=== PATIENT | female | born 1970 | race American Indian/Alaskan Native ===

== ENCOUNTER 2019-01-05 08:35 | Emergency (ER) | payer MEDICAID ==
[2019-01-05 08:47] VITALS: BP 173/98
[2019-01-05] MEDS ORDERED: oxyCODONE /ACETAMINOPHEN 5-325MG TAB PO ONE (09:04)
[2019-01-05] MEDS ORDERED: KETOROLAC 60 MG/2 ML INJ IM ONE (09:04)
[2019-01-05] MEDS ORDERED: ONDANSETRON 4 MG ODT TAB PO ONE (09:05)
[2019-01-05 09:24] LABS: Alanine Aminotransferase 10 units/L (7-56); BUN/Creatinine Ratio 10; Blood Urea Nitrogen 8 mg/dL (7-17); Calcium 8.9 mg/dL (8.4-10.2); Hemolysis Index 7
--- NOTE | 2019-01-05 09:27 | Emergency Department Report ---
ED Female HPI - General Chief complaint: Abdominal Pain Stated complaint: ABD PAIN Time Seen by Provider: 01/05/19 09:05 Source: patient Mode of arrival: Ambulatory Limitations: No Limitations - History of Present Illness Initial comments: 48 year old female with a past medical history hypertension, lupus, sickle cell, and uterine fibroids presents to the hospital with complaints of pelvic pain and vaginal bleeding 3 days. Patient states she typically has irregular menses secondary to fibroids. She is complaining of constant 10/10 suprapubic stabbing abdominal pain worse with palpation. She has never pain this severe before she states. She missed her scheduled appointment on the to have her fibroids removed. [place]. No reports of fever or dysuria. - Related Data Previous Rx's Medication Instructions Recorded Last Taken Type HYDROcodone/APAP 7.5-325 [[place] 1 each PO Q6HR PRN #15 tablet 01/05/19 Unknown Rx 7.5/325] Ibuprofen [Motrin] 800 mg PO Q8HR PRN #30 tablet 01/05/19 Unknown Rx Allergies Allergy/AdvReac Type Severity Reaction Status Date / Time shellfish derived Allergy Severe Anaphylaxis Verified 01/05/19 08:47 Sulfa (Sulfonamide Allergy Anaphylaxis Verified 01/05/19 08:47 Antibiotics) ED Review of Systems ROS: Stated complaint: ABD PAIN Other details as noted in HPI Comment: All other systems reviewed and negative ED Past Medical Hx - Past Medical History Hx Hypertension: Yes Hx Sickle Cell Disease: Yes Additional medical history: LUPUS - Surgical History Additional Surgical History: csec x1. - Social History Smoking Status: Current Every Day Smoker Substance Use Type: Alcohol, Marijuana - Medications Home Medications: Home Medications Medication Instructions Recorded Confirmed Last Taken Type HYDROcodone/APAP 7.5-325 [[place] 1 each PO Q6HR PRN #15 tablet 01/05/19 Unknown Rx 7.5/325] Ibuprofen [Motrin] 800 mg PO Q8HR PRN #30 tablet 01/05/19 Unknown Rx ED Physical Exam - General Limitations: No Limitations - Other Other exam information: Gen.: No acute distress Head: Atraumatic Eyes: Normal appearance ENT: Moist mucous membranes Neck: Normal appearance, no posterior midline tenderness, no meningismus Chest: Clear to auscultation bilaterally Cardiovascular: Regular rate and rhythm Abdomen: Normal appearance, soft, mild suprapubic tenderness, no rebound or guarding, normal bowel sounds Back: Normal appearance, nontender Extremity: Full range of motion, normal appearance Neuro: Alert oriented 3, clear speech, no focal motor or sensory deficit Psychiatric: Appropriate Skin: No rash ED Course Vital Signs 01/05/19 08:46 Temperature 98.4 F Pulse Rate 75 Respiratory 18 Rate Blood Pressure 173/98 [Right] O2 Sat by Pulse 100 Oximetry ED Medical Decision Making - Lab Data Result diagrams: 01/05/19 08:52 01/05/19 08:52 Lab Results 01/05/19 01/05/19 01/05/19 Range/Units 08:52 08:52 08:52 WBC 5.7 (4.5-11.0) K/mm3 RBC 4.94 (3.65-5.03) M/mm3 Hgb 11.5 (10.1-14.3) gm/dl Hct 36.3 (30.3-42.9) % MCV 74 L (79-97) fl MCH 23 L (28-32) pg MCHC 32 (30-34) % RDW 16.8 H (13.2-15.2) % Plt Count 173 (140-440) K/mm3 Lymph % (Auto) 17.7 (13.4-35.0) % Moca % (Auto) 9.9 H (0.0-7.3) % Eos % (Auto) 1.7 (0.0-4.3) % Baso % (Auto) 0.6 (0.0-1.8) % Lymph # 1.0 L (1.2-5.4) K/mm3 Moca # 0.6 (0.0-0.8) K/mm3 Eos # 0.1 (0.0-0.4) K/mm3 Baso # 0.0 (0.0-0.1) K/mm3 Seg Neutrophils % 70.1 H (40.0-70.0) % Seg Neutrophils # 4.0 (1.8-7.7) K/mm3 Sodium 137 (137-145) mmol/L Potassium 4.1 (3.6-5.0) mmol/L Chloride 102.7 (98-107) mmol/L Carbon Dioxide 21 L (22-30) mmol/L Anion Gap 17 mmol/L BUN 8 (7-17) mg/dL Creatinine 0.8 (0.7-1.2) mg/dL Estimated GFR > 60 ml/min BUN/Creatinine Ratio 10 % Glucose 87 (65-100) mg/dL Calcium 8.9 (8.4-10.2) mg/dL Total Bilirubin 0.30 (0.1-1.2) mg/dL AST 14 (5-40) units/L ALT 10 (7-56) units/L Alkaline Phosphatase 73 (35-129) units/L Total Protein 7.4 (6.3-8.2) g/dL Albumin 4.0 (3.9-5) g/dL Albumin/Globulin Ratio 1.2 % Lipase (13-60) units/L HCG, Qual Negative (Negative) Urine Color (Yellow) Urine Turbidity (Clear) Urine pH (5.0-7.0) Ur Specific [place] (1.003-1.030) Urine Protein (Negative) mg/dL Urine Glucose (UA) (Negative) mg/dL Urine Ketones (Negative) mg/dL Urine Blood (Negative) Urine Nitrite (Negative) Urine Bilirubin (Negative) Urine Urobilinogen (<2.0) mg/dL Ur Leukocyte Esterase (Negative) Urine WBC (Auto) (0.0-6.0) /HPF Urine RBC (Auto) (0.0-6.0) /HPF Urine WBC Clumps /HPF Urine Mucus /HPF 01/05/19 01/05/19 Range/Units 08:52 Unknown WBC (4.5-11.0) K/mm3 RBC (3.65-5.03) M/mm3 Hgb (10.1-14.3) gm/dl Hct (30.3-42.9) % MCV (79-97) fl MCH (28-32) pg MCHC (30-34) % RDW (13.2-15.2) % Plt Count (140-440) K/mm3 Lymph % (Auto) (13.4-35.0) % Moca % (Auto) (0.0-7.3) % Eos % (Auto) (0.0-4.3) % Baso % (Auto) (0.0-1.8) % Lymph # (1.2-5.4) K/mm3 Moca # (0.0-0.8) K/mm3 Eos # (0.0-0.4) K/mm3 Baso # (0.0-0.1) K/mm3 Seg Neutrophils % (40.0-70.0) % Seg Neutrophils # (1.8-7.7) K/mm3 Sodium (137-145) mmol/L Potassium (3.6-5.0) mmol/L Chloride (98-107) mmol/L Carbon Dioxide (22-30) mmol/L Anion Gap mmol/L BUN (7-17) mg/dL Creatinine (0.7-1.2) mg/dL Estimated GFR ml/min BUN/Creatinine Ratio % Glucose (65-100) mg/dL Calcium (8.4-10.2) mg/dL Total Bilirubin (0.1-1.2) mg/dL AST (5-40) units/L ALT (7-56) units/L Alkaline Phosphatase (35-129) units/L Total Protein (6.3-8.2) g/dL Albumin (3.9-5) g/dL Albumin/Globulin Ratio % Lipase 39 (13-60) units/L HCG, Qual (Negative) Urine Color Red (Yellow) Urine Turbidity Cloudy (Clear) Urine pH 6.0 (5.0-7.0) Ur Specific [place] 1.015 (1.003-1.030) Urine Protein 100 mg/dl (Negative) mg/dL Urine Glucose (UA) Neg (Negative) mg/dL Urine Ketones Neg (Negative) mg/dL Urine Blood Lg (Negative) Urine Nitrite Neg (Negative) Urine Bilirubin Neg (Negative) Urine Urobilinogen < 2.0 (<2.0) mg/dL Ur Leukocyte Esterase Mod (Negative) Urine WBC (Auto) 10.0 H (0.0-6.0) /HPF Urine RBC (Auto) > 182.0 (0.0-6.0) /HPF Urine WBC Clumps 1+ /HPF Urine Mucus Few /HPF - Radiology Data Radiology results: report reviewed Transabdominal pelvic ultrasound INDICATION / CLINICAL INFORMATION: Right pelvic pain, vaginal bleeding and history of fibroids. COMPARISON: None available. FINDINGS: The patient did not want transvaginal imaging. The uterus measures 11.1 x 8.2 x 9.5 cm. The endometrial stripe measures 9.7 mm AP. There is a 6.3 cm solid mass in the right posterior uterine body, a 4.8 cm solid mass in the uterine fundus on the right and a 7.4 cm solid mass in the uterine body anteriorly on the left. The right ovary measures 3.1 x 1.8 x 1.6 cm and the left ovary 3.7 x 2.0 x 3.0 cm. There is a 1.8 cm follicular cyst in the left ovary. Normal blood flow is present to both ovaries on Doppler exam. No free fluid is seen. IMPRESSION: 1. Multiple uterine fibroids, the largest of which measures 7.4 cm. 2. 1.8 cm follicular cyst in the left ovary. - Medical Decision Making Pain likely secondary to fibroids causing dysmenorrhea UA suggestive of infection however, likely contaminated from vaginal bleeding. Will be treated empirically Patient received Toradol, Percocet 10 and still continue to pain therefore IM dilaudid provided, no signs of sedation at d/c - Differential Diagnosis menorrhagia, fibroids, , Critical Care Time: No Critical care attestation.: If time is entered above; I have spent that time in minutes in the direct care of this critically ill patient, excluding procedure time. ED Disposition Clinical Impression: Fibroids, Dysmenorrhea, Urine WBC increased Disposition: - TO HOME OR SELFCARE Is pt being admited?: No Does the pt Need Aspirin: No Condition: Stable Instructions: Uterine Fibroids (ED), Dysmenorrhea (ED), Urinary Tract Infection in Women (ED) Additional Instructions: Take the medication as prescribed. Follow-up with your doctor or with the doctor/clinic provided. Return if symptoms worsen as indicated by your discharge instructions. Prescriptions: Ibuprofen [Motrin] 800 mg PO Q8HR PRN #30 tablet PRN Reason: Pain, Moderate (4-6) HYDROcodone/APAP 7.5-325 [[place] 7.5/325] 1 each PO Q6HR PRN #15 tablet PRN Reason: Pain Referrals: JOSEPHINE MCGOVERN MD [Staff Physician] - 3-5 Days (stitch bonding machine drawer in ) Time of Disposition: 11:20
[2019-01-05 09:40] LABS: Basophils % (Auto) 0.6 % (0.0-1.8); Eosinophils # (Auto) 0.1 K/mm3 (0.0-0.4); Eosinophils % (Auto) 1.7 % (0.0-4.3); Hematocrit 36.3 % (30.3-42.9); Hemoglobin 11.5 gm/dl (10.1-14.3); Lymphocytes % (Auto) 17.7 % (13.4-35.0); Mean Corpuscular HGB Conc 32 % (30-34); Mean Corpuscular Volume 74 fl (79-97); Monocytes # (Auto) 0.6 K/mm3 (0.0-0.8); Monocytes % (Auto) 9.9 % (0.0-7.3); Platelet Count 173 K/mm3 (140-440); Red Blood Count 4.94 M/mm3 (3.65-5.03); Red Cell Distribution Width 16.8 % (13.2-15.2)
[2019-01-05 09:44] LABS: Bilirubin,Urine NEG (Negative); Blood,Urine LG (Negative); Color,Urine Red (Yellow); Mucus,Urine FEW /HPF; Urobilinogen,Urine < 2.0 mg/dL (<2.0)
[2019-01-05 09:49] LABS: RBC,Urine > 182.0 /HPF (0.0-6.0)
[2019-01-05] MEDS ORDERED: NITROFURANTOIN MONOHYD/M-CRYST 100 MG CAP PO ONE (09:50)
--- NOTE | 2019-01-05 10:22 | Ultrasound Report ---
Transabdominal pelvic ultrasound INDICATION / CLINICAL INFORMATION: Right pelvic pain, vaginal bleeding and history of fibroids. COMPARISON: None available. FINDINGS: The patient did not want transvaginal imaging. The uterus measures 11.1 x 8.2 x 9.5 cm. The endometri al stripe measures 9.7 mm AP. There is a 6.3 cm solid mass in the right posterior uterine body, a 4.8 cm solid mass in the uterine fundus on the right and a 7.4 cm solid mass in the uterine body anterio rly on the left. The right ovary measures 3.1 x 1.8 x 1.6 cm and the left ovary 3.7 x 2.0 x 3.0 cm. There is a 1.8 cm follicular cyst in the left ovary. Normal blood flow is present to both ovaries on Doppler exam. No f ree fluid is seen. IMPRESSION: 1. Multiple uterine fibroids, the largest of which measures 7.4 cm. 2. 1.8 cm follicular cyst in the left ovary. Signer Name: Jethro Magdaleno MD Signed: 01/05/2019 10:17 AM Workstation Name: [id number]
[2019-01-05] MEDS ORDERED: HYDROmorphone 1 MG/1 ML INJ IM ONE (11:04)
== END 2019-01-05 11:27 | disposition home or self-care (01) ==
LOC: ED 08:35
DX: D25.9 Leiomyoma of uterus, unspecified (principal); N94.6 Dysmenorrhea, unspecified; D72.829 Elevated white blood cell count, unspecified; I10 Essential (primary) hypertension; M32.9 Systemic lupus erythematosus, unspecified; F12.10 Cannabis abuse, uncomplicated; Z88.2 Allergy status to sulfonamides; Z91.013 Allergy to seafood; Z79.1 Long term (current) use of non-steroidal anti-inflammatories (NSAID); Z79.899 Other long term (current) drug therapy
CPT/HCPCS: 36415; 76856; 80053; 81001; 83690; 84703; 85025; 87086; 96372; 99284; J1170; J1885; Q0162

== ENCOUNTER 2019-05-18 17:08 | Emergency (ER) | payer MEDICAID ==
[2019-05-18] MEDS ORDERED: dexAMETHasone 20 MG/5 ML VIAL ONE (17:16)
[2019-05-18] MEDS ORDERED: dexAMETHasone 20 MG in SODIUM CHLORIDE 0.9% 50 ML IV ONE (17:19)
--- NOTE | 2019-05-18 17:22 | Emergency Department Report ---
ED Allergic Reaction HPI - General Stated complaint: ALLERGIC REACTION Time Seen by Provider: 05/18/19 17:18 Source: patient, EMS Limitations: No Limitations - History of Present Illness Initial Comments: 48-year-old female with a past medical history sickle cell disease, lupus, and hypertension presents to the hospital with allergic reaction. Patient is allergic to seafood and sulfa. She was eating chips today and began to have hives, pruritus, difficulty swallowing, voice changes, and difficulty breathing. Patient received 1 dose of IM epinephrine, IV Benadryl 50 mg, and 2 doses of nebulized epinephrine prior to arrival. Steroids were not administered. Patient states that her symptoms are slightly improved but she still has hives, pruritus, and hoarseness with difficulty speaking. - Related Data Previous Rx's Medication Instructions Recorded Last Taken Type HYDROcodone/APAP 7.5-325 [[place] 1 each PO Q6HR PRN #15 tablet 01/05/19 Unknown Rx 7.5/325] Ibuprofen [Motrin] 800 mg PO Q8HR PRN #30 tablet 01/05/19 Unknown Rx Nitrofurantoin Stone/M-Cryst 100 mg PO Q12HR #10 capsule 01/05/19 Unknown Rx [Macrobid CAP] EPINEPHrine [Epipen] 0.3 mg IJ ONCE PRN #1 auto.injct 05/18/19 Unknown Rx Famotidine [Pepcid] 20 mg PO BID #10 tablet 05/18/19 Unknown Rx diphenhydrAMINE [Benadryl CAP] 1 - 2 tab PO Q6HR PRN #20 capsule 05/18/19 Unknown Rx predniSONE [Deltasone] 40 mg PO QDAY 5 Days tab 05/18/19 Unknown Rx Allergies Allergy/AdvReac Type Severity Reaction Status Date / Time shellfish derived Allergy Severe Anaphylaxis Verified 05/18/19 17:20 Sulfa (Sulfonamide Allergy Anaphylaxis Verified 05/18/19 17:20 Antibiotics) ED Review of Systems ROS: Stated complaint: ALLERGIC REACTION Other details as noted in HPI Comment: All other systems reviewed and negative ED Past Medical Hx - Past Medical History Hx Hypertension: Yes Hx Sickle Cell Disease: Yes Additional medical history: LUPUS - Surgical History Additional Surgical History: csec x1. - Social History Smoking Status: Current Every Day Smoker Substance Use Type: Alcohol, Marijuana - Medications Home Medications: Home Medications Medication Instructions Recorded Confirmed Last Taken Type HYDROcodone/APAP 7.5-325 [[place] 1 each PO Q6HR PRN #15 tablet 01/05/19 Unknown Rx 7.5/325] Ibuprofen [Motrin] 800 mg PO Q8HR PRN #30 tablet 01/05/19 Unknown Rx Nitrofurantoin Stone/M-Cryst 100 mg PO Q12HR #10 capsule 01/05/19 Unknown Rx [Macrobid CAP] EPINEPHrine [Epipen] 0.3 mg IJ ONCE PRN #1 auto.injct 05/18/19 Unknown Rx Famotidine [Pepcid] 20 mg PO BID #10 tablet 05/18/19 Unknown Rx diphenhydrAMINE [Benadryl CAP] 1 - 2 tab PO Q6HR PRN #20 capsule 05/18/19 Unknown Rx predniSONE [Deltasone] 40 mg PO QDAY 5 Days tab 05/18/19 Unknown Rx ED Physical Exam - Other Other exam information: Nebulized epinephrine still in progress upon arrival General: No limitations, patient is alert in no acute distress Head exam: Atraumatic, normocephalic Eyes exam: Normal appearance ENT: Moist mucous membrane, hoarseness without posterior pharyngeal only on exam, no stridor Neck exam: Normal inspection, full range of motion Respiratory exam: Clear to auscultation bilateral, no wheezes, rales, crackles Cardiovascular: Tachycardic regular rhythm Abdomen: Soft, nondistended, and nontender, with normal bowel sounds, no rebound, or guarding, Extremity: No deformity him a full range of motion Back: Normal Inspection, no CVA tenderness Neurologic: Alert, oriented x3, speech clear, no gross motor or sensory deficit Psychiatric: Normal mood, affect Skin: Generalized hives ED Course Vital Signs 05/18/19 05/18/19 05/18/19 17:15 17:33 17:36 Temperature 98.2 F Pulse Rate 88 Respiratory 22 Rate Blood Pressure 197/103 Blood Pressure 174/92 [Left] O2 Sat by Pulse 100 Oximetry - Reevaluation(s) Reevaluation #1: 05/18/19 18:21 Patient reassessed. Patient states she is feeling better. Voice is less hoarse but does have residual throat tightness. All for patient admission at this time given days she had a significant allergic reaction we'll place changes of a prior epinephrine. Patient declines admission at this time stating she prefers to go home. I will continue to observe patient in the ED since she declined admission at this time. ED Medical Decision Making - Lab Data Result diagrams: 05/18/19 17:32 05/18/19 17:32 Lab Results 05/18/19 05/18/19 Range/Units 17:32 17:32 WBC 10.2 (4.5-11.0) K/mm3 RBC 4.83 (3.65-5.03) M/mm3 Hgb 12.5 (10.1-14.3) gm/dl Hct 37.5 (30.3-42.9) % MCV 78 L (79-97) fl MCH 26 L (28-32) pg MCHC 33 (30-34) % RDW 15.1 (13.2-15.2) % Plt Count 284 (140-440) K/mm3 Lymph # Hospital Coder Add Manual Diff Complete Total Counted 100 Seg Neuts % (Manual) 42.0 (40.0-70.0) % Band Neutrophils % 0 % Lymphocytes % (Manual) 46.0 H (13.4-35.0) % Reactive Lymphs % (Man) 0 % Monocytes % (Manual) 9.0 H (0.0-7.3) % Eosinophils % (Manual) 2.0 (0.0-4.3) % Basophils % (Manual) 1.0 (0.0-1.8) % Metamyelocytes % 0 % Myelocytes % 0 % Promyelocytes % 0 % Blast Cells % 0 % Nucleated RBC % Not Reportable Seg Neutrophils # Man 4.3 (1.8-7.7) K/mm3 Band Neutrophils # 0.0 K/mm3 Lymphocytes # (Manual) 4.7 (1.2-5.4) K/mm3 Abs React Lymphs (Man) 0.0 K/mm3 Monocytes # (Manual) 0.9 H (0.0-0.8) K/mm3 Eosinophils # (Manual) 0.2 (0.0-0.4) K/mm3 Basophils # (Manual) 0.1 (0.0-0.1) K/mm3 Metamyelocytes # 0.0 K/mm3 Myelocytes # 0.0 K/mm3 Promyelocytes # 0.0 K/mm3 Blast Cells # 0.0 K/mm3 WBC Morphology Not Reportable Hypersegmented Neuts Not Reportable Hyposegmented Neuts Not Reportable Hypogranular Neuts Not Reportable Smudge Cells Not Reportable Toxic Granulation Not Reportable Toxic Vacuolation Not Reportable Dohle Bodies Not Reportable Pelger-Huet Anomaly Not Reportable Kristal Rods Not Reportable Platelet Estimate Not Reportable Clumped Platelets Not Reportable Plt Clumps, EDTA Not Reportable Large Platelets Not Reportable Giant Platelets Not Reportable Platelet Satelliting Not Reportable Plt Morphology Comment Not Reportable RBC Morphology Not Reportable Dimorphic RBCs Not Reportable Polychromasia Not Reportable Hypochromasia 1+ Poikilocytosis Not Reportable Anisocytosis 1+ Microcytosis Not Reportable Macrocytosis Not Reportable Spherocytes Not Reportable Pappenheimer Bodies Not Reportable Sickle Cells Not Reportable Target Cells Not Reportable Tear Drop Cells Not Reportable Ovalocytes Not Reportable Helmet Cells Not Reportable [place] Bodies Not Reportable [place] Rings Not Reportable [place] Cells Not Reportable Bite Cells Not Reportable Crenated Cell Not Reportable Elliptocytes Not Reportable Acanthocytes (Spur) Not Reportable Rouleaux Not Reportable Hemoglobin C Crystals Not Reportable Schistocytes Not Reportable Malaria parasites Not Reportable Ruel Bodies Not Reportable Hem Pathologist Commnt No Sodium 138 (137-145) mmol/L Potassium 3.1 L (3.6-5.0) mmol/L Chloride 100.2 (98-107) mmol/L Carbon Dioxide 20 L (22-30) mmol/L Anion Gap 21 mmol/L BUN 10 (7-17) mg/dL Creatinine 0.8 (0.7-1.2) mg/dL Estimated GFR > 60 ml/min BUN/Creatinine Ratio 13 % Glucose 152 H (65-100) mg/dL Calcium 9.3 (8.4-10.2) mg/dL - Radiology Data Radiology results: report reviewed CHEST 1 VIEW INDICATION / CLINICAL INFORMATION: sob, allergic reaction. DIVINA RISON: None available. FINDINGS: SUPPORT DEVICES: None. HEART / MEDIASTINUM: No significant abnormality. LUNGS / PLEURA: No significant pulmonary or pleural abnormality. No pneumothorax. ADDITIONAL FINDINGS: No significant additional findings. IMPRESSION: 1. No acute findings. - Medical Decision Making Patient received Decadron 20 mg IV after arrival and had no improvement in symptoms. Given severity of symptoms, or the ER evaluation and admission was recommended. She declined admission. Explained risk of airway compromise, anaphylaxis, and . Patient wants to sign an AMA form and will be provided a prescription for allergic reaction symptoms. Her potassium was ordered but patient did not receive potassium prior to leaving the department. Patient also left prior to receiving her prescriptions and discharge papers - Differential Diagnosis allergic reaction, food allergy Critical Care Time: No Critical care attestation.: If time is entered above; I have spent that time in minutes in the direct care of this critically ill patient, excluding procedure time. ED Disposition Clinical Impression: Allergic reaction, Hypokalemia Disposition: [id number] LEFT AGAINST MED ADVICE Is pt being admited?: No Condition: Stable Instructions: Hypokalemia (ED), Food Allergy (ED) Additional Instructions: Given the severity of your allergy symptoms further observation and admission was recommended. You have declined admission and further observation at this time. Symptoms may worsen which could result and worsening airway tightness, shortness of breath, and . Fill the medications and take as prescribed and return if symptoms worsen as indicated by your discharge instructions. Follow-up with your doctor or the doctor/clinic provided. Prescriptions: diphenhydrAMINE [Benadryl CAP] 1 - 2 tab PO Q6HR PRN #20 capsule PRN Reason: Allergy Symptoms predniSONE [Deltasone] 40 mg PO QDAY 5 Days tab EPINEPHrine [Epipen] 0.3 mg IJ ONCE PRN #1 auto.injct PRN Reason: Anaphylaxis Famotidine [Pepcid] 20 mg PO BID #10 tablet Referrals: PRIMARY CAREMD [Primary Care Provider] - 3-5 Days PHOEBE ADDISON MD [Staff Physician] - 3-5 Days MACHO URBINA JR, MD [Staff Physician] - 3-5 Days (christmas tree contractor) Forms: AMA Form Time of Disposition: 19:48 (pt left prior to receiving script)
--- NOTE | 2019-05-18 17:46 | XRay Report ---
CHEST 1 VIEW INDICATION / CLINICAL INFORMATION: sob, allergic reaction. COMPARISON: None available. FINDINGS: SUPPORT DEVICES: None. HEART / MEDIASTINUM: No significant abnormality. LUNGS / PLEURA: No significant pulmonary or pleural abnormality. No pneumothorax. ADDITIONAL FINDINGS: No significant additional findings. IMPRESSION: 1. No acute findings. Signer Name: Roger Alcantar MD Signed: 05/18/2019 5:42 PM Workstation Name: [id number]
[2019-05-18 17:55] LABS: Hematocrit 37.5 % (30.3-42.9); Hemoglobin 12.5 gm/dl (10.1-14.3); Mean Corpuscular HGB Conc 33 % (30-34); Mean Corpuscular Volume 78 fl (79-97); Platelet Count 284 K/mm3 (140-440); Red Blood Count 4.83 M/mm3 (3.65-5.03); Red Cell Distribution Width 15.1 % (13.2-15.2)
[2019-05-18 18:15] LABS: BUN/Creatinine Ratio 13; Blood Urea Nitrogen 10 mg/dL (7-17); Calcium 9.3 mg/dL (8.4-10.2); Hemolysis Index 26
[2019-05-18] MEDS ORDERED: POTASSIUM CHLORIDE 20 MEQ PACKET PO ONE (19:06)
[2019-05-18 19:18] LABS: Anisocytosis 1+; Hypochromasia 1+; Total Cells Counted 100
[2019-05-18 20:34] VITALS: BP 157/97
== END 2019-05-18 20:38 | disposition left against medical advice (07) ==
LOC: ED 17:08
DX: E87.6 Hypokalemia (principal); I10 Essential (primary) hypertension; F12.10 Cannabis abuse, uncomplicated; F17.200 Nicotine dependence, unspecified, uncomplicated; Z91.013 Allergy to seafood; Z88.2 Allergy status to sulfonamides; Z98.890 Other specified postprocedural states; Z79.899 Other long term (current) drug therapy
CPT/HCPCS: 36415; 71045; 80048; 85007; 85025; 96374; 99285; J1100